=== PATIENT | male | born 1955 | race Caucasian/White ===

== ENCOUNTER 2018-10-24 12:25 | Day surgery (SDC) | payer OTHER ==
[~2018-10-24] VITALS: Ht 185.4 cm; Wt 109.0 kg
[~2018-10-24 12:25] MED LIST: ASPI81TA14 PO; ATOR40TA78 PO; BUPIVACAINE/PF 0.5% ONE; EPINEPHRINE 1 MG/ML, 1ML ONE; EZET10TA18 PO; FENO145T32 PO; QUIN1TAB15 PO
[2018-10-24] MEDS ORDERED: LACTATED RINGERS 1,000 ML IV SCH ×2 (12:43→18:30)
[2018-10-24] MEDS ORDERED: ACETAMINOPHEN 500 MG TABLET PO ONE (13:00)
[2018-10-24] MEDS ORDERED: GABAPENTIN 300 MG CAPSULE PO ONE (13:00)
[2018-10-24 13:15] VITALS: BP 118/75
[2018-10-24] MEDS ORDERED: MIDAZOLAM 1 MG/ML, 2ML ONE (14:11)
[2018-10-24] MEDS ORDERED: FENTANYL PF 250 MCG/5ML ONE (14:11)
[2018-10-24] MEDS ORDERED: HALOPERIDOL 5 MG/ML IV PRN (14:30)
[2018-10-24] MEDS ORDERED: MEPERIDINE/PF 25MG/0.5ML IVPush PRN (14:30)
[2018-10-24] MEDS ORDERED: hydrALAzine 20 MG/ML, 1ML IV PRN (14:30)
[2018-10-24] MEDS ORDERED: LABETALOL 5MG/ML, 20ML IV PRN (14:30)
[2018-10-24] MEDS ORDERED: OXYcodone 5 MG/5 ML ORAL.SOL UDC PO PRN (14:30)
[2018-10-24] MEDS ORDERED: DIPHENHYDRAMINE 50 MG/ML, 1ML IVPush PRN (14:30)
[2018-10-24] MEDS ORDERED: PROCHLORPERAZINE 5 MG/ML, 2ML IV PRN (14:30)
[2018-10-24] MEDS ORDERED: FENTANYL PF 100 MCG/2ML IV PRN (14:30)
[2018-10-24] MEDS ORDERED: HYDROmorphone 2 MG/ML, 1ML IVPush PRN (14:30)
[2018-10-24] MEDS ORDERED: PROMETHAZINE 25 MG/ML, 1ML IV PRN (14:30)
[2018-10-24] MEDS ORDERED: METOPROLOL 1 MG/ML, 5ML IV PRN (14:30)
[2018-10-24] MEDS ORDERED: SUCCINYLCHOLINE 20 MG/ML, 10ML ONE (16:25)
[2018-10-24] MEDS ORDERED: CEFAZOLIN 1,000 MG ONE (16:25)
[2018-10-24] MEDS ORDERED: ROCURONIUM 10MG/ML,5ML ONE (16:25)
[2018-10-24] MEDS ORDERED: ONDANSETRON 2MG/ML, 2ML ONE (16:25)
[2018-10-24] MEDS ORDERED: DEXAMETHASONE 4 MG/ML, 1ML ONE (16:25)
[2018-10-24] MEDS ORDERED: NEOSTIGMINE 1 MG/ML, 10ML ONE (16:25)
[2018-10-24] MEDS ORDERED: GLYCOPYRROLATE 0.2MG/1ML, 5ML ONE (16:25)
[2018-10-24] MEDS ORDERED: PROPOFOL 10 MG/ML, 20ML ONE (16:25)
[2018-10-24] MEDS ORDERED: FENTANYL PF 100 MCG/2ML ONE (16:46)
[2018-10-24] MEDS ORDERED: OXYcodone 5 MG/5 ML ORAL.SOL UDC ONE (16:47)
[2018-10-24] MEDS ORDERED: OXYcodone/APAP 5/325MG TABLET PO PRN (18:30)
[2018-10-24] MEDS ORDERED: MORPHINE SULFATE 4 MG/ML, 1ML IVPush PRN (18:30)
[2018-10-24] MEDS ORDERED: ONDANSETRON 2MG/ML, 2ML IVPush PRN (18:30)
[2018-10-24] MEDS ORDERED: ATORVASTATIN 40 MG TABLET PO SCH (21:00)
[2018-10-25] MEDS ORDERED: ASPIRIN 81 MG TABLET EC PO SCH (06:00)
[2018-10-25] MEDS ORDERED: EZETIMIBE 10 MG TABLET PO SCH (09:00)
[2018-10-25] MEDS ORDERED: QUINAPRIL 20MG TABLET PO SCH (09:00)
[2018-10-25] MEDS ORDERED: HYDROCHLOROTHIAZIDE 12.5 MG CAPSULE PO SCH (09:00)
[2018-10-25] MEDS ORDERED: FENOFIBRATE 145 MG TABLET PO SCH (09:00)
== END 2018-10-24 21:00 | disposition home or self-care (01) ==
LOC: OUT 12:25 → 4NOR 18:07 → OUT 21:00
PROVIDERS: ATTEND Surgery
DX: K43.2 Incisional hernia without obstruction or gangrene (principal); I10 Essential (primary) hypertension; E78.5 Hyperlipidemia, unspecified; E66.9 Obesity, unspecified; H81.10 Benign paroxysmal vertigo, unspecified ear; Z68.33 Body mass index [BMI] 33.0-33.9, adult; Z72.89 Other problems related to lifestyle; Z79.82 Long term (current) use of aspirin; Z79.899 Other long term (current) drug therapy; Z87.891 Personal history of nicotine dependence; Z91.041 Radiographic dye allergy status; Z90.49 Acquired absence of other specified parts of digestive tract; Z98.890 Other specified postprocedural states
CPT/HCPCS: 49654; C1781; J0171; J0330; J0690; J1100; J2250; J2405; J2704; J2710; J3010; J7120; S2900; G0378